=== PATIENT | female | born 1980 | race Two or more races ===

== ENCOUNTER 2020-08-31 11:33 | Emergency (ER) | payer MEDICAID, OTHER ==
[~2020-08-31] VITALS: Ht 172.7 cm; Wt 108.9 kg
[2020-08-31 14:03] VITALS: BP 109/87
== END 2020-08-31 14:20 | disposition home or self-care (01) ==
LOC: ER 11:38
DX: K02.9 Dental caries, unspecified (principal)

== ENCOUNTER 2023-03-24 17:01 | Emergency (ER) | payer MEDICAID ==
[~2023-03-24] VITALS: Ht 172.7 cm; Wt 113.6 kg
[2023-03-24 18:50] VITALS: BP 127/83; PULSE 110; RESP 16; TEMP 98.1; O2SAT 99
[2023-03-24] MEDS ORDERED: AUG875T PO (20:22)
[2023-03-24] MEDS ORDERED: BUTACC PO (20:22)
[2023-03-24] MEDS ORDERED: ZOFR4T PO (20:22)
[2023-03-24] MEDS ORDERED: OFL50TS OT (20:22)
[2023-03-24] MEDS ORDERED: cefTRIAXone SOD 1,000 MG VL IM ONE (20:30)
[2023-03-24] MEDS ORDERED: KETOROLAC TROMETH 60MG/2ML VIAL IM ONE (20:30)
[2023-03-24] MEDS ORDERED: DexAMETHasone SOD PHOS 10MG/1ML VIAL INJ IM ONE (20:30)
[2023-03-24] MEDS ORDERED: PROCHLORPERAZINE MALEATE 10 MG TAB PO ONE (20:30)
[2023-03-24] MEDS ORDERED: HYDROcodone-ACET 5/325MG TAB PO ONE (20:30)
[2023-03-24] MEDS ORDERED: ONDANSETRON ODT 4 MG TAB PO ONE (20:45)
== END 2023-03-24 21:16 | disposition home or self-care (01) ==
LOC: ER 17:01
DX: R51.9 Headache, unspecified (principal); M62.838 Other muscle spasm; H66.91 Otitis media, unspecified, right ear; M85.2 Hyperostosis of skull
CPT/HCPCS: 70450; 72125; 96372; 99285; J0696; J1100; J1885; Q0162

== ENCOUNTER 2023-04-03 10:47 | Emergency (ER) | payer MEDICAID ==
[~2023-04-03] VITALS: Ht 172.7 cm; Wt 114.9 kg
[~2023-04-03 10:47] MED LIST: AUG875T PO; BUTACC PO; OFL50TS OT; ZOFR4T PO
[2023-04-03] MEDS ORDERED: MELO-335 PO (13:41)
[2023-04-03] MEDS ORDERED: DICL1GEL59 EX (13:41)
[2023-04-03] MEDS ORDERED: LIDO5CRE14 EX (13:41)
[2023-04-03] MEDS ORDERED: KETOROLAC TROMETH 30 MG/ML 1ML VIAL IM ONE (13:45)
[2023-04-03] MEDS ORDERED: DexAMETHasone SOD PHOS 10MG/1ML VIAL INJ IM ONE (13:45)
[2023-04-03 14:00] VITALS: BP 124/74; PULSE 96; RESP 18; TEMP 97.6; O2SAT 98
== END 2023-04-03 14:29 | disposition home or self-care (01) ==
LOC: ER 10:47
DX: M54.2 Cervicalgia (principal); Z79.2 Long term (current) use of antibiotics; Z79.899 Other long term (current) drug therapy
CPT/HCPCS: 96372; 99284; J1100; J1885